=== PATIENT | male | born 1940 | race Caucasian/White ===

== ENCOUNTER 2017-11-30 12:03 | Emergency (ER) | payer MEDICARE, OTHER ==
--- NOTE | 2017-11-30 12:18 | Emergency Department Record ---
History of Present Illness - General Chief Complaint: Abdominal Pain Stated Complaint: ABDOMINAL PAIN Time Seen by Provider: 11/30/17 12:08 Source: Patient, Family Mode of Arrival: Ambulatory Limitations: No limitations - History of Present Illness Initial Comments: 77 yo male presents with diarrhea for five days. He has a history of appendiceal cancer diagnosed in 2014. He had surgery in [address] Del Rosario at [facility] in [place]. He states he recently had two new masses discovered and restarted chemotherapy with Dr Blanca. The last 5 days he has had diarrhea. He does get uncomfortable cramps as well. No fever. He was seen on Sunday by Dr Blanca and had IVF given. He only vomited once. He had decreased appetite but he is trying to eat and drink. He reports about 15-20 stools in the last day. Original cancer diagnosis was on colonoscopy in [facility]. In September he had [facility] He states at this time he has no significant pain or nausea. He declined pain medication at this time. PMHx includes adenocarcinoma of the appendix, splenectomy, cholecystectomy, carcinomatosis debulking, WPW, hypothyroidism. PCP is [facility] Oncology is Dr Rianna PARRA Complaint: Abdominal pain (diarrhea), Other (Diarrhea) -: Days(s) (5) Location: Diffuse Radiation: Other (diffuse) Migration to: Other (diffuse) Consistency: Intermittent Improves With: Nothing Worsens With: Eating Context: Other (Chemotherapy) Associated Symptoms: Anorexia, Diarrhea - Related Data Allergies Allergy/AdvReac Type Severity Reaction Status Date / Time sulfamethoxazole Allergy Intermediate ALTERED Verified 05/17/16 08:04 [From Bactrim] MENTAL STATUS trimethoprim [From Bactrim] Allergy ALTERED Verified 05/17/16 08:04 MENTAL STATUS simvastatin AdvReac Intermediate ALTERED Verified 05/17/16 08:04 MENTAL STATUS Sulfa (Sulfonamide AdvReac Intermediate ALTERED Verified 05/17/16 08:04 Antibiotics) MENTAL STATUS Review of Systems Constitutional: Reports: Malaise, Weakness. Denies: Chills Eyes: Denies: Eye discharge ENT: Denies: Congestion, Throat pain Respiratory: Denies: Cough, Dyspnea Cardiovascular: Denies: Chest pain, Palpitations, Syncope Endocrine: Reports: Fatigue Gastrointestinal: Reports: Abdominal pain, Diarrhea, Vomiting. Denies: Constipation, Hematemesis, Hematochezia, Melena, Nausea Genitourinary: Denies: Dysuria, Frequency Musculoskeletal: Denies: Arthralgia, Back pain, Myalgia, Neck pain Skin: Denies: Bruising, Change in color, Rash Neurological: Denies: Confusion, Headache, Numbness, Weakness Psychiatric: Denies: Anxiety Hematological/Lymphatic: Denies: Easy bleeding, Easy bruising Past Medical History - SOCIAL HISTORY Smoking Status: Never smoker - RESPIRATORY Hx Respiratory Disorders: Yes Hx Pneumonia: Yes (hospital aquired pneumonia 2014) - CARDIOVASCULAR Hx Cardio Disorders: Yes Hx Abnormal EKG: Yes Hx Irregular Heartbeat: Yes (urbano parkinson white) Comment:: high cholesterol - NEURO Hx Neuro Disorders: No - GI Hx GI Disorders: Yes Comment:: Status post abdominal surgery 04/21/15 - Hx Genitourinary Disorders: Yes Hx Kidney Stones: Yes (7-8 yrs ago last) Hx Prostate Problems: Yes (BPH) - ENDOCRINE Hx Endocrine Disorders: Yes Hx Thyroid Disease: Yes (Hypothyroidism) - MUSCULOSKELETAL Hx Musculoskeletal Disorders: Yes Hx Arthritis: Yes (knees, shoulders, low back) - PSYCH Hx Psych Problems: No - HEMATOLOGY/ONCOLOGY Hx Hematology/Oncology Disorders: Yes Hx Bruising: Yes ("I bruise easily") Hx Cancer: Yes (face, back, arms) Hx Chemotherapy: Yes Family Medical History Hx Alcohol Use: Father Hx Dementia: Mother Hx Diabetes: Brother/Sister Hx HTN: Father Hx Stroke: Father Physical Exam - General General Appearance: Alert, Oriented x3, Cooperative, No acute distress Limitations: No limitations - Head Head exam: Normal inspection - Eye Eye exam: Normal appearance. negative: Conjunctival injection - ENT ENT exam: Normal exam, Mucous membranes moist Ear exam: Normal external inspection Nasal Exam: Normal inspection - Neck Neck exam: Normal inspection - Respiratory Respiratory exam: Normal lung sounds bilaterally. negative: Respiratory distress - Cardiovascular Cardiovascular Exam: Regular rate, Normal rhythm, Normal heart sounds - GI/Abdominal GI/Abdominal exam: Soft, Normal bowel sounds. negative: Distended, Guarding, Hypoactive bowel sounds, Rebound, Rigid, Tenderness - Rectal Rectal exam: Deferred - exam: Deferred - Extremities Extremities exam: Normal inspection, Full ROM, Normal capillary refill. 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 He has not taken Propranolol today. 11/30/17 13:11 HCO3 is low at 19 AG is elevated at 24 BUN/CR are 23/1.0 11/30/17 13:16 EKG is atrial fibrillation with RVR, rate is 162, intervals QTc 454, QRS is 89, axis is normal, ST is normal. 11/30/17 13:22 The patient remains asymptomatic. He was able to get up to the bedside commode without symptoms. 11/30/17 13:23 [facility] called for cardiology consult and transfer for his diarrhea while on Chemo. 11/30/17 13:26 K is 2.9, replacement ordered. 11/30/17 13:[address] Mccollum of cardiology regarding the rhythm with history WPW. His QRS is narrow at 89 so he recommends beta macrina. 11/30/17 13:31 11/30/17 13:47 Dr Mccollum recommended discussion with EP at this time. [facility] paged EP. BP 122/90 11/30/17 13:55 HR after Lopressor reassessed. 140-160. Patient is asymptomatic. Awaiting call from EP 11/30/17 14:11 Dr Vazquez called back. We discussed the EKG with AFib with RVR with QRS of 89. He recommended Esmolol drip at the standard starting dose. 11/30/17 14:16 The patient was updated. Laying down he is asymptomatic. No shortness of breath, he does not feel the palpitations. 11/30/17 14:25 Dr Salinas of accepts the patient for transfer to [facility] and for cardiology consultation 11/30/17 14:32 Pharmacy was consulted regarding .5mg/kg bolus then drip at 50umg/kg/min The pharmacist informed me we do not have enough for a drip for Esmolol [facility] Called back. ED to ED transfer requested. 11/30/17 14:33 [facility] was contacted and informed [facility] does not have enough Esmolol to run a drip. I was informed they will expedite a bed. The patient was informed. He states he is not short of breath. He denies any symptoms. 11/30/17 14:38 Lactic Acid is normal at 1.9 11/30/17 14:58 Given he remains in atrial fibrillation and it is unknown if he has been in afib prior to today heparin ordered as well. The patient was informed. 11/30/17 15:10 Second dose of Lopressor given. HR range improved to 99 to 140's. Tolerating well. 11/30/17 15:55 Bp118/70 Due to delays in transfer CT of the abdomen was performed while waiting for a bed. Bed has now been assigned at [facility]. 11/30/17 16:17 The C.Diff is not detected The patient is resting comfortably. He tolerates the atrial fib without shortness of breath Copy of CT obtained and will be sent with the patient. 11/30/17 16:31 CT demonstrated ileitis, no obstruction, non specific thickening of the small bowel Stable for transfer Medical Decision Making - Lab Data Result diagrams: 11/30/17 12:33 11/30/17 12:33 Disposition Disposition: Transfer Clinical Impression: Diarrhea, Atrial fibrillation with RVR, Hypokalemia, Dehydration Disposition: Acute Care Hospital Transfer Transfer To: [facility] Reason For Transfer: diarrhea, atrial fibrillation with RVR Accepting Physician: Robin Time Discussed w/Accepting Physician: 13:34 Condition: (2) Stable Forms: Patient Portal Access Time of Disposition: 13:57 Quality - Quality Measures Quality Measures: N/A - Blood Pressure Screening Does Patient Have Any of the Following: No Blood Pressure Classification: Hypertensive Reading Systolic Measurement: 120 Diastolic Measurement: 102 Screening for High Blood Pressure: < Pre-Hypertensive BP, F/U Documented > [ G8950] Pre-Hypertensive Follow-up Interventions: Referral to alternative/primary care provider.
[2017-11-30] MEDS ORDERED: ONDANSETRON HCL IV 4 MG/2 ML VIAL IVP ONE (12:19)
[2017-11-30] MEDS ORDERED: 0.9 % SODIUM CHLORIDE 1,000 ML BAG IV ONE ×2 (12:19→15:23)
[2017-11-30 12:42] LABS: HEMATOCRIT 42.5 % (42.0-52.0); HEMOGLOBIN 14.9 gm/dl (14.0-18.0); MEAN CORPUSCULAR HEMOGLOBIN 29.1 pg (27-33); MEAN CORPUSCULAR HGB CONC 35.1 g/dl (32-36); PLATELET COUNT 207 K/uL (130-400); RED BLOOD COUNT 5.12 M/uL (4.40-5.70); RED CELL DISTRIBUTION WIDTH 20.2 % (11.5-14.5); WHITE BLOOD COUNT W/O DIFF 5.2 K/uL (4.2-12.2)
[2017-11-30 13:02] LABS: LACTIC ACID 1.9 mmol/L (0.5-2.2)
[2017-11-30 13:05] LABS: ALB/GLOB RATIO 1.1 (1.1-1.8); ALBUMIN 3.5 g/dL (4.0-5.0); ALKALINE PHOSPHATASE 67 U/L (40-129); ALT/SGPT 28 U/L (<41); AST/SGOT 33 U/L (10.0-50.0); BLOOD UREA NITROGEN 23 mg/dL (8-23); EST GLOMERULAR FILTRATION RATE > 60 mL/min; GLUCOSE,RANDOM 130 mg/dL (74-109); TOTAL PROTEIN 6.7 g/dL (6.6-8.7)
[2017-11-30 13:19] LABS: INR 1.2; PARTIAL THROMBOPLASTIN TIME 29.6 SECONDS (24.5-39.1); PROTHROMBIN TIME (PATIENT) 13.2 SECONDS (9.5-12.1)
[2017-11-30 13:20] LABS: LIPASE 27 U/L (13-60)
[2017-11-30] MEDS ORDERED: SOD CHLOR 0.9% WITH KCL 40MEQ 40 MEQ/1,000 ML IV.SOLN IV ONE (13:25)
[2017-11-30] MEDS ORDERED: METOPROLOL TART 5 MG/5 ML VIAL IV ONE ×2 (13:33→14:37)
[2017-11-30 13:52] LABS: ROTOVIRUS NOT DETECTED (NOT DETECT)
[2017-11-30] MEDS ORDERED: ESMOLOL 2.5GM/250ML 250 ML IV SCH ×2 (14:15→14:45)
[2017-11-30] MEDS ORDERED: ESMOLOL HCL 100 MG/10 ML ML IVP STA (14:31)
[2017-11-30 14:53] LABS: STOOL FOR POLYS NO WBC'S OBSERVED (NO WBC'S)
[2017-11-30 14:56] LABS: MOLECULAR C DIFF TOXIN SCREEN NOT DETECTED (NOT DETECT)
[2017-11-30] MEDS ORDERED: HEPARIN SODIUM/D5W 25,000 UNITS/500 ML BAG IV SCH (15:00)
--- NOTE | 2017-12-01 16:27 | CT SCAN REPORT ---
DATE: 11/30/2017 at 3:48 p.m. EXAM: CT SCAN OF THE ABDOMEN AND PELVIS WITH CONTRAST. HISTORY: A history of appendiceal cancer with diarrhea and abdominal pain for five days. Prior splenectomy, cholecystectomy, and bowel surgery. TECHNIQUE: Axial CT scan of the abdomen and pelvis was performed with oral and intravenous contrast given. A dose of 15 mL of Gastroview within 500 mL of fluid. COMPARISON: CT of the abdomen and pelvis dated 05/04/2015. FINDINGS: The previously seen apparent cyst in the liver anteriorly previously measured at 3.3 cm is considerably smaller today, only measuring about 8.0 mm. A large cyst in the region of the caudate lobe of the liver previously seen at 7.4 cm appears essentially unchanged at about 7.4 cm, but there is some new, very slightly greater low-attenuation along the medial aspect of this which may be some loculated ascites. Diffuse fatty infiltration of the liver is again seen. Slightly lobulated outline of the lateral border of the liver with some ascites could be related to the history of peritoneal implants. Gallbladder not identified consistent with surgical history. Apparent ileocolic anastomosis in the right upper quadrant as before. Spleen not identified consistent with surgical history with probably a small accessory spleen in the left upper quadrant, only about 2.0 cm in size, also present previously, slightly larger than before when it measured about 1.4 cm in size. No definite adrenal or pancreatic mass identified. Some small, low-attenuation foci in the kidneys are nonspecific and have a slightly different size and distribution than before of uncertain significance. Large calcified granuloma in the lingula. Bibasilar pleural effusions have cleared in the interval. No pericardial effusion evident. Oral contrast given is passed to the rectum with no bowel obstruction evident. However, much of the distal small bowel leading to the ileocolic anastomosis has a diffusely thick-walled appearance which is nonspecific and may represent a diffuse ileitis; although other etiologies would be possible. There is scattered ascites in the peritoneal cavity. No free intraperitoneal air identified. Diffuse degenerative changes in the spine. Minor thoracolumbar curve to the right. There is probably a nonobstructing calculus in the kidney. Enlarged prostate similar to before containing some calcification. IMPRESSION: 1. POSTOPERATIVE CHANGES INCLUDING CHOLECYSTECTOMY AND ILEOCOLIC ANASTOMOSIS IN THE RIGHT UPPER QUADRANT. 2. DIFFUSELY THICK-WALLED APPEARANCE OF MUCH OF THE DISTAL SMALL BOWEL LEADING TO THE ILEOCOLIC ANASTOMOSIS. 3. SCATTERED, SOMEWHAT LOCULATED-APPEARING ASCITES WHICH HAS PROGRESSED FROM . 4. LARGE PROSTATE SIMILAR TO BEFORE. 5. DIFFUSE DEGENERATIVE CHANGES IN THE SPINE. 6. LARGE CAUDATE LOBE LIVER CYST ESSENTIALLY UNCHANGED. DECREASE IN SIZE OF A CYST MORE SUPERIORLY IN THE LIVER. 7. MULTIPLE SMALL RENAL LOW-ATTENUATION FOCI AGAIN SEEN, ALTHOUGH THEY APPEAR OF SLIGHTLY DIFFERENT SIZE AND DISTRIBUTION THAN BEFORE, OF UNCERTAIN SIGNIFICANCE. JOB NUMBER: [id number] MTDD
== END 2017-11-30 16:58 | disposition short-term general hospital (02) ==
LOC: ER 12:03
DX: R19.7 Diarrhea, unspecified (principal); E86.0 Dehydration; E87.6 Hypokalemia; I48.91 Unspecified atrial fibrillation; E03.9 Hypothyroidism, unspecified; I45.6 Pre-excitation syndrome; C18.1 Malignant neoplasm of appendix
CPT/HCPCS: 74177; 80053; 82272; 83605; 83690; 83735; 85027; 85610; 85730; 87425; 87493; 89055; 93005; 93010; 94760; 96361; 96365; 96366; 96375; 96376; 99285; J2405; J7030

== ENCOUNTER 2018-12-29 18:14 | Emergency (ER) | payer MEDICARE, OTHER ==
--- NOTE | 2018-12-29 18:40 | Emergency Department Record ---
History of Present Illness - General Chief complaint: Bite Insect/other Stated complaint: LT LEG BUG BITES Time Seen by Provider: 12/29/18 18:29 Source: Patient Mode of Arrival: Ambulatory - History of Present Illness Initial comments: The patient has been on a week long fishing trip in [place]. On 12-27-18 he noticed several bug bites on his lower legs, more on the left leg. Today, 12-29-18 he noticed the left foot and ankle was swollen mildly, warm and reddened. He states his made him come in to get checked. His is UTD on his tetanus. He is allergic to all sulfa drugs. He takes xaralto for cardiac conditions. He denies fevers, chills, arthralgias, reyes, or other new issues. He has a routine appointment with his POCP this week in the office MD complaint: Insect bite/sting Onset/Timin -: Days(s) Hx Tetanus Toxoid Vaccination: Yes Year of Tetanus Vaccination: 2012 Patient Tetanus UTD (within 5 yrs): No Location: Neck, L hand, LLE, RLE Severity: Mild Severity scale (1-10): 2 Consistency: Constant Improves with: Topical medication Worsens with: None Context: Foreign travel Associated symptoms: Denies other symptoms Treatments Prior to Arrival: Antibiotic, OTC topical medication Treatment Prior to Arrival Comment:: calamine lotion and GILSON applied topically. - Related Data Home Medications Medication Instructions Recorded Confirmed Last Taken Bevacizumab [Avastin] 25 mg IV WEEKLY 12/29/18 12/29/18 12/11/18 Rivaroxaban [Xarelto] 20 mg PO DAILY 12/29/18 12/29/18 12/29/18 Sotalol HCl [Sotalol] 80 mg PO BID 12/29/18 12/29/18 12/29/18 Previous Rx's Medication Instructions Recorded Clindamycin HCl [Cleocin HCl] 300 mg PO QID #39 capsule 12/29/18 Allergies Allergy/AdvReac Type Severity Reaction Status Date / Time sulfamethoxazole Allergy Intermediate ALTERED Verified 05/17/16 08:04 [From Bactrim] MENTAL STATUS trimethoprim [From Bactrim] Allergy ALTERED Verified 05/17/16 08:04 MENTAL STATUS Sulfa (Sulfonamide AdvReac Intermediate ALTERED Verified 05/17/16 08:04 Antibiotics) MENTAL STATUS Travel Screening - Travel/Exposure Within Last 30 Days Have you traveled within the last 30 days?: Yes Location Detail:: [place] - Travel/Exposure Within Last Year Have you traveled outside the [place] in the last year?: Yes Location Detail:: [place] - Additonal Travel Details Have you been exposed to anyone with a communicable illness?: No - Travel Symptoms Symptom Screening: None Review of Systems Reviewed: No additional complaints except as noted below Constitutional: Reports: As per HPI. Denies: Chills, Fever, Malaise, Night sweats, Weakness, Weight change Eyes: Reports: As per HPI. Denies: Eye discharge, Eye pain, Photophobia, Vision change ENT: Reports: As per HPI. Denies: Congestion, Dental pain, Ear pain, Epistaxis, Hearing loss, Throat pain Respiratory: Reports: As per HPI. Denies: Cough, Dyspnea, Hemoptysis, Stridor, Wheezes Cardiovascular: Reports: As per HPI. Denies: Arrhythmia, Chest pain, Dyspnea on exertion, Edema, Murmurs, Orthopnea, Palpitations, Paroxysmal nocturnal dyspnea, Rheumatic Fever, Syncope Endocrine: Reports: As per HPI. Denies: Fatigue, Heat or cold intolerance, Polydipsia, Polyuria Gastrointestinal: Reports: As per HPI. Denies: Abdominal pain, Constipation, Diarrhea, Hematemesis, Hematochezia, Melena, Nausea, Vomiting Genitourinary: Reports: As per HPI. Denies: Dysuria, Frequency, Hematuria, Incontinence, Retention, Testicular pain, Testicular mass, Urgency Musculoskeletal: Reports: As per HPI. Denies: Arthralgia, Back pain, Gout, Lisa nt swelling, Myalgia, Neck pain Skin: Reports: As per HPI. Denies: Bruising, Change in color, Change in hair/nails, Lesions, Pruritus, Rash Neurological: Reports: As per HPI. Denies: Abnormal gait, Confusion, Headache, Numbness, Paresthesias, Seizure, Tingling, Tremors, Vertigo, Weakness Psychiatric: Reports: As per HPI. Denies: Anxiety, Auditory hallucinations, Depression, Homicidal thoughts, Suicidal thoughts, Visual hallucinations Hematological/Lymphatic: Reports: As per HPI. Denies: Anemia, Blood Clots, Easy bleeding, Easy bruising, Swollen glands Past Medical History - SOCIAL HISTORY Smoking Status: Never smoker - RESPIRATORY Hx Respiratory Disorders: Yes Hx Pneumonia: Yes (hospital aquired pneumonia 2014) - CARDIOVASCULAR Hx Cardio Disorders: Yes Hx Abnormal EKG: Yes Hx Irregular Heartbeat: Yes (urbano parkinson white, a-fib) Comment:: high cholesterol - NEURO Hx Neuro Disorders: No - GI Hx GI Disorders: Yes Comment:: removal of colon, spleen, and gallbladder r/t cancer. - Hx Genitourinary Disorders: Yes Hx Kidney Stones: Yes Hx Prostate Problems: Yes (BPH) - ENDOCRINE Hx Endocrine Disorders: Yes Hx Thyroid Disease: Yes (Hypothyroidism) - MUSCULOSKELETAL Hx Musculoskeletal Disorders: Yes Hx Arthritis: Yes (knees, shoulders, low back) - PSYCH Hx Psych Problems: No - HEMATOLOGY/ONCOLOGY Hx Hematology/Oncology Disorders: Yes Hx Bruising: Yes Hx Cancer: Yes (skin cancer and abdominal organ cancer.) Hx Chemotherapy: Yes Family Medical History Any Significant Family History?: Yes Hx Alcohol Use: Father Hx Dementia: Mother Hx Diabetes: Brother/Sister Hx HTN: Father Hx Stroke: Father Physical Exam - General General Appearance: Alert, Oriented x3, Cooperative, No acute distress - Head Head exam: Normal inspection - Eye Eye exam: Normal appearance, PERRL Pupils: Normal accommodation - ENT ENT exam: Normal exam, Mucous membranes moist, Normal external ear exam, Normal orophraynx, TM's normal bilaterally Ear exam: Normal external inspection. negative: External canal tenderness Nasal Exam: Normal inspection. negative: Discharge, Sinus tenderness Mouth exam: Normal external inspection, Tongue normal Teeth exam: Normal inspection. negative: Dental caries Throat exam: Normal inspection. negative: Tonsillar erythema, Tonsillar exudate - Neck Neck exam: Normal inspection, Full ROM. negative: Lymphadenopathy, Meningismus, Tenderness - Respiratory Respiratory exam: Normal lung sounds bilaterally. negative: Respiratory distress - Cardiovascular Cardiovascular Exam: Regular rate, Normal rhythm, Normal heart sounds - GI/Abdominal GI/Abdominal exam: Soft, Normal bowel sounds. negative: Distended, Rigid, Tenderness - Rectal Rectal exam: Deferred - exam: Deferred - Extremities Extremities exam: Normal inspection (to right leg ), Full ROM, Normal capillary refill, Pedal edema (left leg--see note), Tenderness (left lower extremity with insect bites to distal lower coronel with locallized recent bleeding beneath skin consistent with blood thinner use. the left lower leg has faint erythema, warmth and swelling over a stocking distribution. There is no calf tenderness. CMS intact distally. There are a few bug bites on the right lower extremity, and a few mosquito like bites to his forearms which do not appear infected.). negative: Calf tenderness - Back Back exam: Reports: Normal inspection, Full ROM. Denies: CVA tenderness (R), CVA tenderness (L), Muscle spasm, Rash noted, Tenderness - Neurological Neurological exam: Alert, CN II-XII intact, Normal gait, Oriented X3, Reflexes normal - Psychiatric Psychiatric exam: Normal affect, Normal mood - Skin Skin exam: Dry, Intact, Normal color, Warm Course Vital Signs 12/29/18 18:16 Temperature 98.9 F Pulse Rate 52 L Respiratory 16 Rate Blood Pressure 152/79 Pulse Ox 96 - Reevaluation(s) Reevaluation #1: 12/29/18 19:38 Reevaluation #2: Patient as instruted to follow with his PCP in 24 hours and to remain off his legs except to shower and for essential daily activity. All questions answered. 12/29/18 19:44 Medical Decision Making - Management Options MDM Management: No Additional Work-up Planned (PCP follow up in office 24 hours) Disposition Disposition: Discharge Clinical Impression: Insect bites of multiple sites, infected Cellulitis Qualifiers: Site of cellulitis: extremity Site of cellulitis of extremity: lower extremity Laterality: left Qualified Code(s): L03.116 - Cellulitis of left lower limb Disposition: Home, Self-Care Condition: (1) Good Instructions: MRSA (Methicillin-Resistant Staphylococcus Aureus) (ED), Cellulitis (ED), Insect Bite or Sting (ED) Additional Instructions: Take clindamycin 300 mg four times daily until completely finished for 10 days. Elevate legs. Only minimal required ambulation. Recheck with PCP in office 24-48 hours. Return here is worsened before recheck. Continue present medications. Prescriptions: Clindamycin HCl [Cleocin HCl] 300 mg PO QID #39 capsule Forms: Patient Portal Access Quality - Quality Measures Quality Measures: N/A - Blood Pressure Screening Does Patient Have Any of the Following: No Blood Pressure Classification: Hypertensive Reading Systolic Measurement: 152 Diastolic Measurement: 79 Screening for High Blood Pressure: < Pre-Hypertensive BP, F/U Documented > [G8950] Pre-Hypertensive Follow-up Interventions: Follow-up with rescreen every year.
[2018-12-29] MEDS ORDERED: CLINDAMYCIN 150 MG CAP PO ONE (18:47)
== END 2018-12-29 19:25 | disposition home or self-care (01) ==
LOC: ER 18:14
DX: S50.862A Insect bite (nonvenomous) of left forearm, initial encounter (principal); S50.861A Insect bite (nonvenomous) of right forearm, initial encounter; S80.862A Insect bite (nonvenomous), left lower leg, initial encounter; L03.116 Cellulitis of left lower limb; W57.XXXA Bitten or stung by nonvenomous insect and other nonvenomous arthropods, initial encounter; Y92.828 Other wilderness area as the place of occurrence of the external cause; Z79.01 Long term (current) use of anticoagulants
CPT/HCPCS: 99282; 99283